=== PATIENT | male | born 1980 | race Caucasian/White ===

== ENCOUNTER 2016-10-21 17:42 | Inpatient (IN) | payer OTHER, BC ==
[~2016-10-21] VITALS: Ht 172.7 cm; Wt 86.9 kg
--- NOTE | ~2016-10-21 | DS ---
PATIENT'S NAME: SUDEEP ROJAS [facility] AGE: 35 Y [address] ROOM: [id number] [place] [id number] LOCATION: [facility] ADMIT DATE: 10/21/2016 Discharge Summary DISCHARGE DATE: 10/25/2016 FAMILY PHYSICIAN: Darwin Wilson MD ATTENDING PHYSICIAN: Agatha Griffin REASON FOR ADMISSION: The patient is a 35-year-old male who was admitted from [facility] in [place]. The patient sustained a compound depressed skull fracture to the right parietal area with adjacent acute epidural hematoma. The injuries happened when a pipe struck the back of the patient's head. TREATMENT RENDERED: The patient was taken to the operating room and underwent elevation of compound depressed right parietal skull fracture and evacuation of acute right parietal epidural hematoma. Postoperatively, the patient complained of some head pain. Repeat CT scan showed no recurrence of the hematoma. The skull fracture had been satisfactorily elevated. The patient's headache was treated symptomatically and he showed improvement. By the 25 of October, the patient was ready for transfer. He was dismissed home on that day with arrangements made for him to follow up with me in the [facility]surgery [facility]. At the time of discharge, the patient was alert, following commands, his incision was healing well, his headache had subsided. I expect he will do well. FINAL DIAGNOSES: 1. Compound depressed skull fracture. 2. Acute epidural hematoma. MD SHON CRUZO/fantasma /[id number] d: 11/01/16 0059 t: 11/03/16 2206, DISCHARGE SUMMARY
--- NOTE | ~2016-10-21 | HP ---
PATIENT'S NAME: CRYSTAL [facility] AGE: 35 Y [address] ROOM: [place] [address] LOCATION: [facility] ADMIT DATE: 10/21/2016 History & Physical DISCHARGE DATE: FAMILY PHYSICIAN: PHYSICIAN, UNKNOWN ATTENDING PHYSICIAN: Agatha Griffin DATE OF SERVICE: 10/21/2016 REFERRED BY: Dr. Wilson in [place], [place]. REASON FOR REFERRAL: Head injury. PATIENT IDENTIFICATION: Obie Walker is a 35-year-old male. PRESENTING COMPLAINT: Blow to the head. HISTORY OF PRESENT ILLNESS: The patient was working around pipes today. One of the pipes broke off and hit him on the back of his head on the right side. There was some period of loss of consciousness, but not for long. The patient was taken to [facility] in [place]. He had a head CT done which showed a depressed skull fracture and an epidural hematoma. I was, therefore, consulted to see the patient. PAST MEDICAL HISTORY: The patient has elevated blood pressure. CURRENT MEDICATIONS: Lisinopril. ALLERGIES: PENICILLIN. SOCIAL HISTORY: The patient is a nonsmoker and a nondrinker. He is . FAMILY HISTORY: There is no family history relevant to present problems. REVIEW OF SYSTEMS: A 10-point review of systems was carried out. The only abnormal finding is as PATIENT'S NAME: OBIE WALKER [facility] AGE: 35 Y [address] ROOM: [place] [address] LOCATION: [facility] ADMIT DATE: 10/21/2016 History & Physical DISCHARGE DATE: FAMILY PHYSICIAN: PHYSICIAN, UNKNOWN ATTENDING PHYSICIAN: Agatha Griffin described in the history of present illness. PHYSICAL EXAMINATION: GENERAL: On examination, the patient is a healthy-looking young man, who was alert and oriented when I saw him. VITAL SIGNS: Blood pressure 147/93, pulse rate 98. NEUROLOGIC: Speech is intact. Cranial nerves: No deficits seen. Motor examination: The patient has normal strength in all the major muscle groups of his upper and lower extremities bilaterally. Gait not tested. CARDIOVASCULAR SYSTEM: Heart sounds are present. RESPIRATORY SYSTEM: The patient is not short of breath at bedside. EXTREMITIES: No cyanosis or clubbing. SKIN: No skin rashes or skin masses. HEENT: Head: There is a laceration to the right parietal area of the head. Eyes and Ears: No evidence of trauma. REVIEW OF IMAGING STUDIES: The patient has had a head CT scan done. CT scan shows a depressed skull fracture underlying the right parietal laceration. There was also a small epidural hematoma next to the fracture. IMPRESSION: A 35-year-old male with right parietal compound depressed skull fracture and small epidural hematoma. MEDICAL DECISION MAKING: The patient is being admitted to the hospital. He will require elevation of the compound depressed skull fracture and evacuation of the hematoma. I have explained the procedure to the patient and his [id number]. I have gone over the benefits, risks, and alternatives with them. I plan to do the patient's surgery this evening. MD KOFI CRUZ/fantasma /[id number] D: [id number] T: 811 HISTORY & PHYSICAL
--- NOTE | ~2016-10-21 | OR ---
PATIENT'S NAME: SUDEEP ROJAS [facility] AGE: 35 Y [address] ROOM: [id number] [address] LOCATION: [facility] ADMIT DATE: 10/21/2016 OR/Procedure Report DISCHARGE DATE: FAMILY PHYSICIAN: MONY CHRISTIAN MD ATTENDING PHYSICIAN: Agatha Griffin SURGEON: Agatha Griffin MD HUMAN RESOURCES LEADER: Francois Montes. DATE OF PROCEDURE: 10/21/2016 PREOPERATIVE DIAGNOSES: 1. Compound depressed right parietal skull fracture. 2. Right parietal epidural hematoma. ANESTHESIA: General. ANESTHESIA PROVIDERS: Dr. Mony Montoya and Dr. Miguel Miner. HISTORY: The patient is a 35-year-old male who developed a compound depressed skull fracture and an acute epidural hematoma in the right parietal area after being struck on the back of his head by a pipe. There was some loss of consciousness after the impact. It was felt necessary to elevate the skull fracture since it was a compound fracture and also to evacuate the epidural hematoma, which was right adjacent to the fracture. The procedure, benefits, and risks were discussed with the patient and his [id number]. With his consent, he was brought to the operating room for surgery. PROCEDURE IN DETAIL: In the operating room, the patient was placed in a supine position. Anesthesia was induced. He was intubated. His head was supported on a gel donut with his face turned facing the left side and thereby bringing the right parietal area into the operative field. The hair was clipped. There was a laceration overlying the compound depressed skull fracture. The whole area was prepped and draped in a sterile fashion. The laceration was used as part of the scalp incision. The incision was infiltrated with local anesthesia. The scalp flap was then turned and the depressed fracture became visible. Different tools were used to elevate the fracture. It came out in small bits and there was no piece large enough for replacement. The area was then debrided and all hair and foreign material embedded in the fracture were extracted. The patient had an epidural hematoma right next to the fracture and using the fracture as an entry point, the [place] Don was used to do a small craniotomy flap. The epidural hematoma was found to be a little bit larger than it had seemed on the preoperative CT scan. The hematoma was gently evacuated. PATIENT'S NAME: SUDEEP ROJAS [facility] AGE: 35 Y [address] ROOM: [address] [id number] LOCATION: [facility] ADMIT DATE: 10/21/2016 OR/Procedure Report DISCHARGE DATE: FAMILY PHYSICIAN: MONY CHRISTIAN MD ATTENDING PHYSICIAN: Agatha Griffin The dura was then tacked up to the undersurface of the skull. The bone flap was also replaced. A series of holes were drilled around the edge of the bone flap and matching holes were drilled around the craniotomy defect. Using these holes, sutures were passed from the craniotomy flap to the craniotomy defect and the flap was tied down. A small bur hole cover was used to cover the area of the depressed skull fracture. The incision was then closed in layers using appropriate suture materials. A sterile dressing was applied. The patient was rolled back to a supine position. His anesthesia was reversed. He was extubated and taken to the recovery room to complete his recovery. I was present at and performed every aspect of this procedure, assisted at some stages by the operating room nurses. There were no apparent intraoperative complications. Swabs, needles, and instruments were all accounted for at the end of the case. Estimated blood loss was less than 100 mL. There was no reason for blood transfusion. I expect the patient to benefit from this procedure. MD SHON CRUZO/noell /[id number] d: 10/23/16 0015 t: 10/25/16 1816, OPERATIVE SUMMARY
[2016-10-21 19:47] LABS: BASOPHIL # 0.1 K/uL (0.0-0.2); BASOPHIL % 0.5 %; EOSINOPHIL % 0.2 %; HEMATOCRIT 36.8 % (37.0-53.0); HEMOGLOBIN 12.8 g/dL (12.0-17.0); IMMATURE GRANULOCYTE # 0.1 K/uL (0.0-0.3); IMMATURE GRANULOCYTE % 0.3 %; LYMPHOCYTE % 6.6 %; MCH 29.7 pg (27.0-34.0); MCHC 34.8 gm/dL (32.0-36.5); MCV 85.4 fl (83.0-98.0); MONOCYTE # 0.7 K/uL (0.0-1.0); MONOCYTE % 4.6 %; MPV 10.5 fl (9.4-12.4); NEUTROPHIL # (ANC) 13.2 K/uL (1.4-9.0); NEUTROPHIL % 87.8 %; NRBC % 0 /100WBC (0-0.00); PLATELET COUNT 267 K/uL (150-450); RBC 4.31 M/uL (4.00-6.00); RDW-CV 13.2 % (11.9-14.6); WBC 15.1 K/uL (4.0-11.0)
[2016-10-21 19:59] LABS: INR - (THERAPEUTIC) 0.96 (0.92-1.07); PROTIME 10.1 SECONDS (9.8-11.4); PTT 24 SECONDS (25-32)
[2016-10-21 20:04] LABS: ALBUMIN 3.7 gm/dL (3.5-5.0); ALK PHOS 53 IU/L (33-138); ALT 58 IU/L (12-78); AST 25 IU/L (10-40); BLOOD UREA NITROGEN 12 mg/dL (6-24); CALCIUM 7.6 mg/dL (8.5-10.5); CHLORIDE 108 mMol/L (96-110); CO2 25 mMol/L (22-32); CREATININE 0.9 mg/dL (0.6-1.3); SODIUM 141 mMol/L (135-145); TOTAL BILIRUBIN 0.3 mg/dL (0.0-1.5)
[2016-10-21] MEDS ORDERED: PRINIVIL (ZESTR20 MG PO (20:05)
[2016-10-25] MEDS ORDERED: NORCO 5-325 TA1 EACH PO (13:28)
[2016-10-25] MEDS ORDERED: PHENERGAN25 M1 PO (13:30)
== END 2016-10-25 14:27 | disposition disaster alternative care site (69) | DRG 27 ==
LOC: GICU 17:42
PROVIDERS: ADMIT Neurological Surgery
PROC: 0NS Head and Facial Bones, Reposition (ICD-10-PCS; principal; 2016-10-21)
PROC: 00C30ZZ Extirpation of Matter from Intracranial Epidural Space, Open Approach (ICD-10-PCS; principal; 2016-10-21)
DX: S02.0XXA Fracture of vault of skull, initial encounter for closed fracture (principal); I10 Essential (primary) hypertension; S06.4X9A Epidural hemorrhage with loss of consciousness of unspecified duration, initial encounter; S01.81XA Laceration without foreign body of other part of head, initial encounter; W20.8XXA Other cause of strike by thrown, projected or falling object, initial encounter; Z88.0 Allergy status to penicillin
CPT/HCPCS: J0690; J1100; J2270; J2405; J2550; J7030

== ENCOUNTER → 2016-10-21 | Outpatient (CLI) | payer OTHER, BC ==
[~2016-10-21] MED LIST: NORCO 5-325 TA1 EACH PO; PHENERGAN25 M1 PO; PRINIVIL (ZESTR20 MG PO
== END | disposition disaster alternative care site (69) ==
LOC: GAMB 17:22
DX: S02.91XA Unspecified fracture of skull, initial encounter for closed fracture (principal); S06.360A Traumatic hemorrhage of cerebrum, unspecified, without loss of consciousness, initial encounter; G89.11 Acute pain due to trauma; X58.XXXA Exposure to other specified factors, initial encounter
CPT/HCPCS: A0425; A0428